=== PATIENT | female | born 1950 | race Caucasian/White ===

== ENCOUNTER → 2019-11-29 | Outpatient (CLI) | payer MEDICARE ==
--- NOTE | 2019-11-29 16:23 | RADIOLOGY REPORT (SQ) ---
EXAM DESCRIPTION: CAROTID DOPPLER IMAGES COMPLETED DATE/TIME: 11/29/2019 4:06 pm REASON FOR STUDY: TIA, HTN I63.9 CEREBRAL INFARCTION, UNSPECIFIED I10 ESSENTIAL (PRIMARY) HYPERTEN STACY COMPARISON: None. TECHNIQUE: Grayscale ultrasound, Doppler velocity and spectra, and color Doppler images acquired of the extra-cranial carotid and vertebral arteries. Images stored on PACS. LIMITATIONS: None. FINDINGS: RIGHT CAROTID CCA Velocities: Within normal limits. ICA Velocities Peak systolic 104 cm/s. End diastolic 46 cm/s. Proximal ICA/CCA peak systolic ratio 1.16. Spectra normal. No significant plaque. LEFT CAROTID CCA Velocities: Within normal limits. ICA Velocities Peak systolic 125 cm/s. End diastolic 39 cm/s. Proximal ICA/CCA peak systolic ratio 1.52. Focal area of mixed calcified and soft plaque in the carotid bulb-proximal ICA. The left distal ICA is tortuous. Spectra normal. VERTEBRAL ARTERIES: Antegrade flow. Normal waveforms. SUBCLAVIAN ARTERIES: No finding. OTHER: No other significant finding. IMPRESSION: 1. NO HEMODYNAMICALLY SIGNIFICANT STENOSIS. COMMENT: Quality ID #[id number]: Velocity criteria are extrapolated from the diameter data as defined by t he Society of Radiologists in Ultrasound Consensus Conference. Radiology 2003: 229; 340-346. TECHNICAL DOCUMENTATION: JOB ID: [id number] 2010 [employer] All Rights Reserved Reading location - IP/workstation name: [email or web address]
--- NOTE | 2019-11-29 19:02 | XCELERA REPORT ---
[address] [address] Transthoracic Echocardiogram Report Name: ADAN RODRIGUEZ Age: 69 yrs Gender: Female : 1950 Patient Status: Outpatient Patient Location: [facility] Study Date: 11/29/2019 01:32 PM Height: 62 in Weight: 160 lb BSA: 1.7 m2 Reason For Study: TIA, HTN Ordering Physician: DENICE LUTZ Performed By: Bora Ortiz Interpretation Summary Minimal posterior pericardial effusion. Mild aortic root calcification, no enlargement. Mild nonstenotic calcific aortic valvular disease, 3 cusps AV, with mild AR, no LV enlargement. Mild mitral annular calcification with mild thickened anterior and posterior mitral leaflets, no Mitral stenosis, mild mitral regurgitation. No MVP. No left atrial enlargement, AKHIL is 17.8. LV shows no LVH, no LV apical clot, LVEF is 65% with no L ventricular diastolic dysfunction. No segmental regional wall motion abnormality. There is no LV enlargement. No LVOT obstruction. Right heart is poorly seen, no suspicion of RV or RA enlargement, TAPSE suggests normal RV function. Mild TR with RVSP 25mm Hg, ie, no pulmonary hypertension. Trace pulm. regurgitation. No ASD. No L heart valvular vegetation or LA thrombus to suggest cardiogenic emboli. MMode/2D Measurements & Calculations RVDd: 2.5 cm LVIDd: 4.4 cm FS: 41.1 % Ao root diam: 2.8 cm IVSd: 1.0 cm LVIDs: 2.6 cm EDV(Teich): Ao root area: LVPWd: 0.98 cm 87.7 ml ESV(Teich): 6.2 cm2 24.4 ml LA dimension: 3.2 cm EF(Teich): 72.1 % LVLd ap4: 7.1 cm SV(MOD-sp4): EDV(MOD-sp4): 34.0 ml 54.0 ml LVLs ap4: 5.3 cm ESV(MOD-sp4): 20.0 ml EF(MOD-sp4): 63.0 % Doppler Measurements & Calculations MV E max isabella: MV P1/2t max isabella: Ao V2 max: AI max isabella: 80.0 cm/sec 79.6 cm/sec 117.3 cm/sec 412.7 cm/sec MV A max isabella: MV P1/2t: 53.4 msec Ao max PG: AI max P.9 cm/sec 5.5 mmHg 68.1 mmHg MV E/A: 0.94 MVA(P1/2t): 4.1 cm2 AI dec slope: MV dec slope: 437.0 cm/sec2 198.0 cm/sec2 MV dec time: AI P1/2t: 0.21 sec 610.5 msec LV V1 max PG: PA V2 max: PI end-d isabella: TR max isabella: 4.0 mmHg 92.8 cm/sec 76.0 cm/sec 234.2 cm/sec LV V1 max: PA max P.4 mmHg TR max P.2 cm/sec 21.9 mmHg LV dP/dt: 3029 mmHg/s AV P1/2t-pr_phl: MV P1/2t-pr_phl: 610.5 msec 53.0 msec I WMSI = 1.00 % Normal = 100 X - Cannot 2 - 4 - Segments Size Interpret 1 - Normal Hypokinetic 3 - AkineticDyskinetic 1-2 small 5 - 3-5 moderate Aneurysmal 6-14 large 15-16 diffuse : DENICE LUTZ Andre
== END ==
LOC: SP 12:59
PROVIDERS: ATTEND Internal Medicine
DX: I63.9 Cerebral infarction, unspecified (principal); I10 Essential (primary) hypertension
CPT/HCPCS: 93306; 93880